=== PATIENT | male | born 2000 | race Caucasian/White ===

== ENCOUNTER 2022-07-26 03:13 | Emergency (ER) | payer SELFPAY ==
[~2022-07-26] VITALS: Ht 175.3 cm; Wt 74.2 kg
[2022-07-26 03:21] VITALS: BP 129/108
[2022-07-26] MEDS ORDERED: IBUP-2028 PO (05:26)
[2022-07-26] MEDS ORDERED: T3 PO (05:26)
[2022-07-26] MEDS ORDERED: DEXAMETHASONE 4MG/ML 1ML VIAL IM ONE (05:30)
[2022-07-26] MEDS ORDERED: KETOROLAC 60MG/2ML VIAL IM ONE (05:30)
== END 2022-07-26 05:45 | disposition home or self-care (01) ==
LOC: ER 03:21
DX: M54.50 Low back pain, unspecified (principal)
CPT/HCPCS: 72100; 96372; 99284; J1100; J1885